=== PATIENT | male | born 1965 | race African-American/Black ===

== ENCOUNTER 2023-07-19 12:35 | Emergency (ER) | payer MEDICAID, OTHER ==
[~2023-07-19] VITALS: Ht 182.9 cm; Wt 124.0 kg
[2023-07-19 12:53] VITALS: BP 168/105; PULSE 83; RESP 20; TEMP 98.8; O2SAT 96
[2023-07-19] MEDS ORDERED: AMLO10TA80 MT (14:03)
[2023-07-19] MEDS ORDERED: LISI-648 MT (14:03)
[2023-07-19] MEDS ORDERED: METF-416 MT (14:03)
[2023-07-19] MEDS ORDERED: LORA10TA7 MT (14:03)
[2023-07-19] MEDS ORDERED: LIDO700A15 TP (14:36)
[2023-07-19] MEDS ORDERED: ACET-2708 MT (14:38)
== END 2023-07-19 15:27 | disposition home or self-care (01) ==
LOC: ER 12:35
DX: M77.8 Other enthesopathies, not elsewhere classified (principal); E11.9 Type 2 diabetes mellitus without complications; E78.00 Pure hypercholesterolemia, unspecified; I10 Essential (primary) hypertension
CPT/HCPCS: 73030; 99283

== ENCOUNTER 2023-09-03 06:16 | Emergency (ER) | payer MEDICAID ==
[~2023-09-03] VITALS: Ht 193 cm; Wt 122.0 kg
[~2023-09-03 06:16] MED LIST: ACET-2708 MT; AMLO10TA80 MT; LIDO700A15 TP; LISI-648 MT; LORA10TA7 MT; METF-416 MT
[2023-09-03 06:23] VITALS: O2SAT 98
[2023-09-03] MEDS ORDERED: METF-416 MT (08:07)
[2023-09-03] MEDS ORDERED: LORA10TA7 MT (08:07)
[2023-09-03] MEDS ORDERED: LISI-648 MT (08:07)
[2023-09-03] MEDS ORDERED: LIDO700A15 TP (08:07)
[2023-09-03] MEDS ORDERED: AMLO10TA80 MT (08:07)
[2023-09-03 09:59] VITALS: BP 156/98; PULSE 110; RESP 16; TEMP 98.5
== END 2023-09-03 10:00 | disposition home or self-care (01) ==
LOC: ER 06:16
DX: M79.10 Myalgia, unspecified site (principal); M75.02 Adhesive capsulitis of left shoulder; E11.9 Type 2 diabetes mellitus without complications; E78.00 Pure hypercholesterolemia, unspecified; I10 Essential (primary) hypertension; Z79.899 Other long term (current) drug therapy
CPT/HCPCS: 99281; 99283

== ENCOUNTER 2025-05-28 11:51 | Emergency (ER) | payer MEDICAID ==
[~2025-05-28] VITALS: Ht 193 cm; Wt 118.0 kg
[~2025-05-28 11:51] MED LIST changes: +LIDO-53 TP; -LIDO700A15 TP
[2025-05-28 11:58] VITALS: O2SAT 100
[2025-05-28 12:22] VITALS: BP 133/84; PULSE 99; RESP 18; TEMP 36.7; O2SAT 99
[2025-05-28] MEDS ORDERED: BO1 TP (14:21)
== END 2025-05-28 14:30 | disposition home or self-care (01) ==
LOC: ER 11:51
DX: M79.674 Pain in right toe(s) (principal); I10 Essential (primary) hypertension; E11.9 Type 2 diabetes mellitus without complications; Z79.899 Other long term (current) drug therapy; Z79.84 Long term (current) use of oral hypoglycemic drugs
CPT/HCPCS: 73620; 99283

== ENCOUNTER 2025-06-06 03:28 | Emergency (ER) | payer MEDICAID ==
[~2025-06-06] VITALS: Ht 193 cm; Wt 123.0 kg
[~2025-06-06 03:28] MED LIST changes: +BO1 TP
[2025-06-06 03:54] VITALS: O2SAT 99
[2025-06-06 04:38] VITALS: BP 142/94; PULSE 97; RESP 21; TEMP 37.1; O2SAT 98
== END 2025-06-06 04:42 | disposition home or self-care (01) ==
LOC: ER 03:28
DX: M79.671 Pain in right foot (principal); Z48.00 Encounter for change or removal of nonsurgical wound dressing; E11.9 Type 2 diabetes mellitus without complications; I10 Essential (primary) hypertension; Z79.84 Long term (current) use of oral hypoglycemic drugs; Z79.899 Other long term (current) drug therapy
CPT/HCPCS: 99282

== ENCOUNTER 2025-06-14 23:57 | Emergency (ER) | payer MEDICAID ==
[~2025-06-14] VITALS: Ht 193 cm; Wt 118.0 kg
[2025-06-15] MEDS: ACETAMINOPHEN 500MG TABLET PO ONE (01:25)
[2025-06-15] MEDS: LIDOCAINE 5% PATCH TOP SCH (01:26)
[2025-06-15] MEDS: KETOROLAC 30MG/ML VIAL IM ONE (03:46)
[2025-06-15] MEDS ORDERED: CYCL10TA21 MT (04:37)
[2025-06-15] MEDS ORDERED: LIDO-53 TP (04:37)
[2025-06-15] MEDS ORDERED: IBUP-1455 MT (04:37)
[2025-06-15 04:50] VITALS: BP 174/97; PULSE 87; RESP 17; TEMP 36.7; O2SAT 97
== END 2025-06-15 04:55 | disposition home or self-care (01) ==
LOC: ER 23:57
DX: S00.83XA Contusion of other part of head, initial encounter (principal); R07.89 Other chest pain; I10 Essential (primary) hypertension; E11.9 Type 2 diabetes mellitus without complications; Z79.899 Other long term (current) drug therapy; W03.XXXA Other fall on same level due to collision with another person, initial encounter; Y93.89 Activity, other specified; Y92.89 Other specified places as the place of occurrence of the external cause; Y99.8 Other external cause status
CPT/HCPCS: 99285; 70450; 71101; 70486; 96372; J1885